=== PATIENT | male | born 1980 | race Hispanic/Latino ===

== ENCOUNTER 2022-06-14 10:35 | Emergency (ER) | payer OTHER ==
[2022-06-14] MEDS ORDERED: Lidocaine 1% 20 ML MDV ONE (11:07)
[2022-06-14] MEDS ORDERED: Bupivacaine 0.5% 10 ML VIAL ONE (11:07)
[2022-06-14] MEDS ORDERED: Cephalexin 250 MG CAP ONE (11:52)
[2022-06-14] MEDS ORDERED: Bacitracin 1 PK ONE (13:30)
== END 2022-06-14 14:30 | disposition home or self-care (01) ==
LOC: NAV ERS 10:35
DX: S62.635A Displaced fracture of distal phalanx of left ring finger, initial encounter for closed fracture (principal); S62.633A Displaced fracture of distal phalanx of left middle finger, initial encounter for closed fracture; S61.215A Laceration without foreign body of left ring finger without damage to nail, initial encounter; S61.213A Laceration without foreign body of left middle finger without damage to nail, initial encounter; S61.211A Laceration without foreign body of left index finger without damage to nail, initial encounter; F17.210 Nicotine dependence, cigarettes, uncomplicated; X58.XXXA Exposure to other specified factors, initial encounter
CPT/HCPCS: 12002; J3490